=== PATIENT | male | born 1995 | race Two or more races ===

== ENCOUNTER 2017-04-13 13:22 | Emergency (ER) | payer OTHER ==
--- NOTE | ~2017-04-13 | CR181 ---
[facility] A Service of [facility] & [facility] RADIOLOGY TEXT RESULTS PATIENT: ANDREI BYRD LOCATION: CFTX : 97 UNIT #: [id number] AGE: [address]: Rosio Rodriguez APRN SEX: M ORDER DR: [id number] [facility] [address] [place], [place] [address] [id number] MR#: [id number] Acc #: [id number] NAME: ANDREI BYRD : 1995 SEX: M STUDY DATE/TIME: 04/13/2017 15:53 UNIT: [facility] ROOM: STUDY DESCRIPTION: CR Lumbar Spine 2 or 3 Views Attending Physician: Kaz CarbajalPCamilaRFrandy Ordering Physician: Ed Doctor [id number] [facility] Primary Care Physician: Kei العراقي Jr. A.P.R.NCamila MEDICAL IMAGING REPORT This report is preliminary unless electronic signature is present EXAM Lumbar spine series INDICATIONS Lower back pain for the past month, worse over the past 2 days. No known injury. PROCEDURE 3 views of the lumbar spine COMPARISON None FINDINGS Lumbar bodies have normal height. Alignment is preserved. Sacroiliac joints are symmetric. IMPRESSION No acute findings. Dictated by... South Rai M.D. THIS IS AN ELECTRONICALLY VERIFIED REPORT South Rai M.D. at 04/14/2017 8:29 AM Sagar TD: 04/14/2017 08:19 JOB #: [id number] MEDICAL IMAGING REPORT Page 1 of 1 COPY
[2017-04-13 15:35] LABS: URINE SOURCE CLEAN CATCH
[2017-04-13 15:56] LABS: URINE APPEARANCE CLEAR; URINE BILIRUBIN NEG (NEG); URINE BLOOD NEG (NEG); URINE COLOR YELLOW; URINE GLUCOSE NEG (NEG); URINE KETONE NEG (NEG); URINE LEUKOCYTE ESTERASE NEG (NEG); URINE NITRATE NEG (NEG); URINE PROTEIN NEG (NEG); URINE SPECIFIC GRAVITY 1.016 (1.003-1.035); URINE UROBILINOGEN 0.2 MG/DL (NEG)
[2017-04-13 16:01] LABS: CULTURE INDICATED? NO
== END 2017-04-13 17:09 | disposition home or self-care (01) ==
LOC: CED 13:22 → CFTX 13:22
PROVIDERS: Nurse Practitioner
DX: M54.42 Lumbago with sciatica, left side (principal); J45.909 Unspecified asthma, uncomplicated
CPT/HCPCS: 72100; 81003; 96372; 99284; J1885

== ENCOUNTER 2017-04-27 20:36 | Observation (INO) | payer OTHER ==
[~2017-04-27] VITALS: Ht 170.2 cm; Wt 58.0 kg
--- NOTE | ~2017-04-27 | EE ---
Unit #: [id number] #: [id number] Patient: ANDREI BYRD [id number] [address] [address] [id number] I MR#: [id number] NAME: ANDREI BYRD : 1995 SEX: M STUDY DATE/TIME: 04/28/2017 UNIT: C3A PCU ROOM: 319 STUDY DESCRIPTION: EEG Attending Physician: Ron Bergman M.D. Referring Physician: Rosalva Matias M.D. Primary Care Physician: Kei العراقي Jr., A.P.R.N. NEURODIAGNOSTICS REPORT EXAM EEG REASON FOR THE STUDY Spells. EEG DESCRIPTION This is an inpatient, digitally recorded multi-montage adult EEG with leads placed according to the International 10-20 System. Hyperventilation and photic stimulation was attempted. With the patient fully aroused, there is 9 Hz posterior dominant alpha rhythm which is symmetric and attenuates with eyes opening. The patient did become drowsy and later on stage 2 sleep was seen. No clearcut interictal discharges or clinical events were seen. Hyperventilation was attempted but I did not see any significant changes, driving or asymmetry. Photic stimulation was attempted in intermittent stepwise pattern up to the flash frequency of 30 Hz but I did not see any driving, asymmetry or paroxysmal activity. No clinical events were seen. IMPRESSION This is an essentially normal adult awake and asleep EEG. An EEG like this does not rule out epilepsy. Clinical correlation is recommended. Dictated by... Aydin Beaver/siva TD: 05/01/2017 07:04 JOB #: [id number] Unit #: [id number] #: [id number] Patient: ANDREI BYRD NEURODIAGNOSTICS REPORT Page 1 of 1 X Jeremias Reddy MD NEURODIAGNOSTICS REPORT
--- NOTE | ~2017-04-27 | CR72 ---
[facility] A Service of [facility] & [facility] RADIOLOGY TEXT RESULTS PATIENT: ANDREI BYRD LOCATION: A 319-01 : 97 UNIT #: [id number] AGE: [address]: Ron Bergman MD SEX: M ORDER DR: [id number] [facility] [address] [facility]. [place], [place] [address] [id number] I MR#: [id number] Acc #: [id number] NAME: ANDREI BYRD : 1995 SEX: M STUDY DATE/TIME: 04/27/2017 21:02 UNIT: C3A U ROOM: 319 STUDY DESCRIPTION: CR Chest Single View Portable Attending Physician: Ron Bergman M.D. Ordering Physician: Ayad Busch D.O. Primary Care Physician: Kei العراقي Jr., A.P.R.N. MEDICAL IMAGING REPORT This report is preliminary unless electronic signature is present EXAM Frontal chest 04/27/2017 INDICATION 21-year-old male with shortness of air and altered status today. TECHNIQUE Frontal chest. No comparisons. FINDINGS Cardiac silhouette is within normal limits. The vascularity demonstrates no evidence of volume overload. There are calcified granulomas. No effusion, pneumothorax or dense consolidation. IMPRESSION 1. Chronic granulomatous changes, otherwise negative frontal chest. We have no comparisons for this patient. Dictated by... Sohan Fried M.D. THIS IS AN ELECTRONICALLY VERIFIED REPORT Sohan Fried M.D. at 04/28/2017 2:22 PM JACKELIN/siva TD: 04/28/2017 11:04 JOB #: [id number] MEDICAL IMAGING REPORT Page 1 of 1 COPY
--- NOTE | ~2017-04-27 | HP ---
Unit #: [id number] #: [id number] Patient: ANDREI BYRD [id number] [address] [address] [id number] I MR#: [id number] NAME: ANDREI BYRD ROOM: 319 Age: 21 Sex: M Admission Date: 04/28/2017 : 1995 Attending Physician: Rosalva Matias M.D. Primary Care Physician: Kei العراقي Jr., A.P.R.N. HISTORY AND PHYSICAL CHIEF COMPLAINT Altered level of consciousness. HISTORY This 21-year-old male with asthma, is admitted for mental status changes. The patient was in his usual state of health until last evening. Around 8:30 or so the patient's brother noticed that the patient's breathing had changed. The patient was lying in bed. He started snoring/strange respirations. Family was then unable to arouse the patient. His mother drove him to the ER and they carried him into the emergency department. Patient started shaking. His eyes were rolling side to side when seen by the ER physician. He was given 1 mg of Ativan in case this was a seizure and then given 1 g of Keppra. He was bolused with a liter of saline. A call was also made to neurology. Thus far his workup is negative. Urine tox screen is still pending. PAST MEDICAL HISTORY Asthma. ALLERGIES None. HOME MEDICATIONS Ventolin and Advair. FAMILY HISTORY Seizures in an uncle. SOCIAL HISTORY The patient lives with family. He is originally from [place]. He is a lifelong nonsmoker and does not drink alcohol. REVIEW OF SYSTEMS Impossible to obtain as patient still is a bit confused and is somnolent. PHYSICAL EXAMINATION GENERAL: Somnolent, thin, 21-year-old male currently in no acute distress. VITAL SIGNS: Temperature 97.6, pulse 85, respirations are 12, blood pressure 148/96, O2 saturation is 97% on room air. HEENT: Eyes - PERRLA, pharynx is benign. No abrasions over the tongue. Unit #: [id number] #: [id number] Patient: ANDREI BYRD NECK: Supple without adenopathy or thyromegaly. CHEST: Clear. CARDIAC: Normal S1 and S2 without murmur. ABDOMEN: Bowel sounds are present. No hepatosplenomegaly, tenderness or masses. EXTREMITIES: Without clubbing, cyanosis or edema. Pedal pulses are present. No splinter hemorrhages noted over the fingernail beds. No tract lópez seen. NEUROLOGIC: Patient is somnolent but easily arousable. His cranial nerves are intact. He has equal strength throughout. He is oriented x3. DIAGNOSTIC STUDIES ADMISSION LABS: Hematocrit is 46.7, normal white count and platelet count. SMA 12 - is normal. Negative cardiac markers. Normal acetaminophen, salicylate and alcohol levels. Urine tox screen is pending. IMAGING STUDIES: Head CT - no acute disease. Sinus thickening. Chest x-ray - old granulomatous disease. CARDIOLOGY STUDIES: EKG shows a normal sinus rhythm, rate 85, normal appearing. ASSESSMENT 1. Altered mental status with shaky movements. Will rule out seizure versus other. 2. Stable asthma. PLANS 1. Obtain urine tox screen. This will be positive, however, for benzos, as patient did receive a dose of Ativan in the ER. 2. Obtain urinalysis. 3. IV fluids and supportive treatment. 4. Obtain EEG. One dose of Keppra was given. 5. Neurology to see in the morning. Dictated by Rosalva Matias M.D. AML/ts TD: 04/28/2017 05:44 JOB #: [id number] HISTORY AND PHYSICAL Page 1 of 1 X Rosalva Matias MD X HISTORY AND PHYSICAL
--- NOTE | ~2017-04-27 | CT71 ---
[facility] A Service of [facility] RADIOLOGY TEXT RESULTS PATIENT: ANDREI BYRD LOCATION: [facility] 319-01 : [birth year] UNIT #: [id number] AGE: [address]: Ron Bergman MD SEX: M ORDER DR: [id number] [facility] [address] [facility] [place] [facility]. [place], [place] [address] [id number] I MR#: [id number] Acc #: [id number] NAME: ANDREI BYRD : 1995 SEX: M STUDY DATE/TIME: 04/27/2017 21:35 UNIT: [address] ROOM: [facility] STUDY DESCRIPTION: CT Head Wo Contrast Attending Physician: Ron Bergman M.D. Ordering Physician: Ayad Busch D.O. Primary Care Physician: Kei العراقي Jr., A.P.R.N. MEDICAL IMAGING REPORT This report is preliminary unless electronic signature is present EXAM CT head, noncontrast, 04/27/2017. HISTORY 21-year-old male in the ED after a reported seizure today. Confusion/mental status changes are noted. TECHNIQUE CT examination of the head without IV contrast. This CT exam was performed with one or more of the following radiation dose reduction techniques: automatic exposure control, adjustment of mA and/or kV according to patient size, and iterative reconstruction. FINDINGS The examination is negative. No evidence of intracranial hemorrhage, mass, mass effect, cerebral edema, hydrocephalus or additional abnormality. Note is made of mild mucosal thickening in the ethmoid sinuses. IMPRESSION 1. Negative head CT examination. 2. Ethmoid sinus mucosal thickening. Dictated by... Jimmie Bowling M.D. THIS IS AN ELECTRONICALLY VERIFIED REPORT Jimmie Bowling M.D. at 04/28/2017 10:00 PM NICOLE/munir TD: 04/28/2017 11:04 JOB #: [id number] [facility] A Service of [facility] & [facility] RADIOLOGY TEXT RESULTS PATIENT: ANDREI BYRD [facility]ATION: [id number] [birth year] UNIT #: [id number] AGE: [address]: Ron Bergman MD SEX: M ORDER DR: MEDICAL IMAGING REPORT Page 1 of 1 COPY
--- NOTE | ~2017-04-27 | DS ---
Unit #: [id number] #: [id number] Patient: ANDREI BYRD [id number] [address] [address] [id number] I MR#: [id number] NAME: ANDREI BYRD ROOM: 319 Age: 21 Sex: M Admission Date: 04/28/2017 : 1995 Discharge Date: 04/28/2017 Attending Physician: Ron Bergman M.D. Primary Care Physician: Kei العراقي Jr., A.P.R.N. DISCHARGE SUMMARY REASON FOR ADMISSION Altered level of consciousness. HISTORY OF PRESENT ILLNESS/HOSPITAL COURSE The patient is a 21-year-old male with a prior history of asthma, deafness left ear, diminished right ear hearing, who moved/was displaced from [place] approximately two years ago, presented after he was found by his brother to have agonal breathing as well as mental status changes. Family subsequently had difficulty arousing him. He had a decreased level of consciousness and subsequently brought him to the emergency room. While he was evaluated in the emergency room, apparently, he started having a shaking/seizure-like episode. He was given Ativan as well as Keppra, bolused with normal saline and was subsequently admitted, placed on telemetry floor. Consultation was placed to Neurology Services. The patient underwent EEG this a.m. and has subsequently since been cleared. He has had no other acute events while here. He does have a prior history of asthma and there is a question if he had an acute asthma attack secondary to underlying anxiety. Apparently, he had some personal/social issues that were going on at home. He was not in his words his usual state of mind. This may have prompted subsequent asthma exacerbation which might explain his difficulty with breathing. At time of discharge, I will give him a prescription for both Albuterol as well as Symbicort and he was asked to follow up with Dr. Kei العراقي, his primary care physician, in 7 to 10 days. FINAL DISCHARGE DIAGNOSES 1. Altered mental status/decreased level of consciousness, likely hypoxic/hypercapnic asthma exacerbation/attack. 2. Questionable seizure activity in the emergency room. DISCHARGE MEDICATIONS 1. Albuterol MDI one to two puffs q.6 p.r.n. 2. Symbicort 160/4.5 mcg two puffs b.i.d. DISCHARGE CONDITION Stable. DISCHARGE DISPOSITION Home. Unit #: [id number] #: [id number] Patient: ANDREI BYRD Dictated by... Aydin Brown/byron TD: 05/01/2017 08:49 JOB #: [id number] DISCHARGE SUMMARY Page 1 of 1 X Ron Bergman MD X DISCHARGE SUMMARY
--- NOTE | ~2017-04-27 | EKG ---
PATIENT: ANDREI BYRD UNIT #: [id number] Ventricular Rate: 85 BPM Atrial Rate: 85 BPM P-R Interval: 148 ms QRS Duration: 90 ms Q-T Interval: 348 ms QTC Calculation(Bezet): 414 ms P Plato: 63 degrees Calculated R Plato: 77 degrees Calculated T Plato: 54 degrees Diagnosis Line: Normal sinus rhythm Diagnosis Line: Nonspecific ST elevation Diagnosis Line: Abnormal ECG Diagnosis Line: No previous ECGs available Diagnosis Line: Confirmed by SVETLANA MATTA MD ([id number]) on 04/28/2017 Diagnosis Line: 11:52:14 PM INTERPRETING MD: PAXTON SIDDIQI
[2017-04-27 21:06] LABS: BASOPHIL% 0.5 % (0-2.5); EOSINOPHIL# 0.2 X10e3 (0-0.7); EOSINOPHIL% 2.2 % (0.0-7.0); HEMATOCRIT 46.7 % (38.0-50.0); HEMOGLOBIN 15.7 gm/dL (13.0-16.0); LYMPHOCYTE# 2.3 X10e3 (1.0-3.5); LYMPHOCYTE% 23.8 % (17.0-45.0); MEAN CELL VOLUME 88.8 FL (83-96); MEAN CORPUSCULAR HEMOGLOBIN 29.9 PG (28-34); MEAN CORPUSCULAR HGB CONC 33.7 g/dL (30-36); MEAN PLATELET VOLUME 8.7 FL (6.5-11.5); MONOCYTE# 0.5 X10e3 (0-1.0); MONOCYTE% 5.4 % (3.0-12.0); NEUTROPHIL# 6.5 X10e3 (1.5-7.1); NEUTROPHIL% 68.1 % (40-75); PLATELET COUNT 240 X10e3 (140-420); RED BLOOD COUNT 5.26 X10e (3.90-5.60); RED CELL DISTRIBUTION WIDTH 13.3 % (11.0-15.5); WHITE BLOOD COUNT 9.6 X10e3 (4.0-10.5)
[2017-04-27 21:07] LABS: DIFF IND NO
[2017-04-27 21:21] LABS: PARTIAL THROMBOPLASTIN TIME 24.8 SECONDS (23.5-31.3); PROTHROMBIN TIME (PATIENT) 11.2 SECONDS (10.0-11.7)
[2017-04-27 22:16] LABS: ALBUMIN SERUM 4.5 g/dL (3.5-5.0); ALKALINE PHOSPHATASE 74 U/L (32-92); ALT (SGPT) 16 U/L (8-36); AST (SGOT) 17 U/L (13-38); BILIRUBIN, DIRECT 0.1 mg/dL (0.0-0.2); BILIRUBIN,INDIRECT 0.6 mg/dL (0.0-0.9); BILIRUBIN,TOTAL 0.7 mg/dL (0.2-2.0); BLOOD UREA NITROGEN 15 mg/dL (9-23); BUN/CREATININE RATIO 16.66; CALCIUM SERUM 9.3 mg/dL (8.4-10.2); CARBON DIOXIDE 27 mmol/L (22-31); CHLORIDE 105 mmol/L (100-111); CREATININE SERUM 0.9 mg/dL (0.6-1.4); GLOM FILT RATE Estimated 123.4 mL/min (>60); GLUCOSE FASTING 106 mg/dL (70-110); POTASSIUM 3.8 mmol/L (3.5-5.1); PROTEIN TOTAL SERUM 7.2 g/dL (6.0-8.3); SALICYLATE <4.0 mg/dL; SODIUM 140 mmol/L (135-145)
[2017-04-27 22:18] LABS: ACETAMINOPHEN <10 ug/mL; ALCOHOL BLOOD <5 mg/dL (0)
[2017-04-27 23:10] LABS: POC - CKMB <1.0 ng/mL (0.0-7.9); POC - TROPONIN <0.05 ng/mL (<=0.05)
[2017-04-28 04:15] LABS: URINE SOURCE CLEAN CATCH
[2017-04-28 04:18] LABS: URINE APPEARANCE CLOUDY; URINE BILIRUBIN NEG (NEG); URINE BLOOD NEG (NEG); URINE COLOR YELLOW; URINE GLUCOSE NEG (NEG); URINE KETONE TRACE (NEG); URINE LEUKOCYTE ESTERASE TRACE (NEG); URINE NITRATE NEG (NEG); URINE PROTEIN NEG (NEG); URINE SPECIFIC GRAVITY 1.029 (1.003-1.035)
[2017-04-28 04:20] LABS: URINE BACTERIA AUWI NEG (NEGATIVE); URINE SQUAMOUS EPITHELIAL CELL FEW /[HPF]
[2017-04-28 04:35] LABS: AMPHETAMINE NEG (NEG); BARBITURATES NEG (NEG); BENZODIAZEPINES NEG (NEG); COCAINE NEG (NEG); MARIJUANA NEG (NEG); OPIATES NEG (NEG); TRICYCLIC ANTIDEPRESSANTS NEG (NEG); U METHADONE NEG (NEG)
[2017-04-28 06:38] LABS: HEMATOCRIT 43.4 % (38.0-50.0); HEMOGLOBIN 14.3 gm/dL (13.0-16.0); MEAN CELL VOLUME 89.5 FL (83-96); MEAN CORPUSCULAR HEMOGLOBIN 29.5 PG (28-34); MEAN PLATELET VOLUME 8.7 FL (6.5-11.5); RED BLOOD COUNT 4.85 X10e (3.90-5.60); RED CELL DISTRIBUTION WIDTH 13.4 % (11.0-15.5)
[2017-04-28 07:01] LABS: BUN/CREATININE RATIO 22.85; CALCIUM SERUM 8.8 mg/dL (8.4-10.2); CREATININE SERUM 0.7 mg/dL (0.6-1.4); GLOM FILT RATE Estimated 136.9 mL/min (>60); POTASSIUM 3.8 mmol/L (3.5-5.1)
[2017-04-28] MEDS ORDERED: ALBUTEROL17 GM INH (14:51)
[2017-04-28] MEDS ORDERED: SYMBICORT INH (14:51)
== END 2017-04-28 15:05 | disposition home or self-care (01) ==
LOC: CED 20:36 → CEDOF 04-28 00:46 → CED 04-28 00:46 → CEDOF 04-28 01:10 → C3A PCU 04-28 01:55
PROVIDERS: Emergency Medicine; Internal Medicine
DX: R41.82 Altered mental status, unspecified (principal); J45.909 Unspecified asthma, uncomplicated; Z79.51 Long term (current) use of inhaled steroids
CPT/HCPCS: 36415; 70450; 71010; 80048; 80076; 80307; 81003; 82553; 84484; 85025; 85027; 85610; 85730; 87086; 93005; 94664; 95816; 96365; 96375; 99285; G0378; G0480; J1953; J2060